=== PATIENT | male | born 1960 | race Caucasian/White ===

== ENCOUNTER → 2025-04-22 10:05 | Outpatient (REF) | payer OTHER, SELFPAY | LOC: PAVMRI 10:05 | PROVIDERS: ATTENDING PHYSICIAN Physician Assistant Medical; FAMILY PHYSICIAN Physician Assistant Medical | DX: M54.16 Radiculopathy, lumbar region (principal); M51.26 Other intervertebral disc displacement, lumbar region | CPT/HCPCS: 72148 ==